=== PATIENT | male | born 1960 | race African-American/Black ===

== ENCOUNTER → 2018-07-08 | Outpatient (CLI) | payer BC, OTHER | END | disposition home or self-care (01) | LOC: RAD 09:06 | DX: J20.9 Acute bronchitis, unspecified (principal) | CPT/HCPCS: 71046 ==

== ENCOUNTER → 2018-11-06 | Outpatient (CLI) | payer BC | END | disposition home or self-care (01) | LOC: RAD 17:43 | DX: I82.402 Acute embolism and thrombosis of unspecified deep veins of left lower extremity (principal); M25.552 Pain in left hip | CPT/HCPCS: 73502; 73510; 93971 ==